=== PATIENT | female | born 1990 | race Caucasian/White ===

== ENCOUNTER 2023-07-11 13:39 | Inpatient (IN) ==
[2023-07-11] MEDS ORDERED: Buffered Lidocaine 1% SYRIN 1 ml INTRADERM ONE (14:34)
[2023-07-11] MEDS ORDERED: Lactated Ringers 1000 ml BAG 1,000 ML IV ONE ×2 (14:34→20:00)
[2023-07-11] MEDS ORDERED: Lidocaine 1% VIAL 10 MG/ML 30 ML VIAL INJ PRN (14:34)
[2023-07-11] MEDS ORDERED: Penicillin G Potassium IV 5,000,000 UNITS in NS 0.9% 100 ml BAG 100 ML IVPB ONE (14:46)
[2023-07-11] MEDS ORDERED: Lidocaine 2% JELLY 6 ML Topical TOPICAL ONE (14:48)
[2023-07-11] MEDS ORDERED: Calcium Carb (TUMS) 500 mg CHEW TAB PO PRN (14:48)
[2023-07-11] MEDS ORDERED: miSOPROStol 100 mcg TAB PO ONE (14:48)
[2023-07-11] MEDS ORDERED: Ondansetron 4 mg VIAL 2 MG/ML 2 ml VIAL IV PRN (14:48)
[2023-07-11] MEDS ORDERED: Lactated Ringers 1000 ml BAG 1,000 ML IV SCH ×2 (15:00→20:00)
[2023-07-11 15:45] LABS: ABS Basophils 0.1 10^3/uL (0.0-0.1); ABS Lymphocytes 0.6 10^3/uL (1.0-4.8); ABS Monocytes 0.5 10^3/uL (0.0-0.9); ABS Neutrophils 12.2 10^3/uL (1.5-7.6); ABS Nucleated RBC 0.01 10^3/ul; Hematocrit 38.5 % (35-45); Lymphocyte % 4.4 %; Mean Corpuscular Hemoglobin 30.2 pg (27-33); Mean Corpuscular Hgb Conc 33.8 g/dL (31-36); Mean Corpuscular Volume 89.5 fL (80-97); Mean Platelet Volume 9.5 fL (7.5-11.2); Nucleated Red Blood Cells % 0.1 %/100WBC (0.0-0.8); Platelet Count 185 10^3/uL (150-450); Red Cell Distribution Width 12.6 % (12-17); White Blood Count 13.3 10^3/uL (3.8-11.8)
[2023-07-11 15:49] LABS: Urine Benzodiazepine Screen None Detected (None Detect); Urine Cannabinoids Screen None Detected (None Detect); Urine Opiates Screen None Detected (None Detect)
[2023-07-11] MEDS ORDERED: OBEPIDURAL (200 ML) 200 ML EPIDURAL ONE (19:09)
[2023-07-11] MEDS ORDERED: Lidocaine 1.5% EPI 1:200,000 30 ML SDV ONE (19:10)
[2023-07-11] MEDS ORDERED: fentaNYL 100 mcg/2 ml 50 MCG/ML VIAL ONE (19:22)
[2023-07-11] MEDS ORDERED: Phenylephrine 40 mcg/mL 10mL (400mcg) SYRINGE IV PUSH PRN ×2 (20:00)
[2023-07-11] MEDS ORDERED: OBEPIDURAL (200 ML) 200 ML EPIDURAL SCH (20:00)
[2023-07-11] MEDS ORDERED: Sodium Citrate/Citric Acid LIQ 15 ML UDC PO PRN (20:00)
[2023-07-11] MEDS: Penicillin G Potassium IV 3,000,000 UNITS in NS 0.9% 100 ml BAG 100 ML IVPB SCH (20:16)
[2023-07-11] MEDS ORDERED: Oxytocin in LR 20,000 MILLI.UNIT/1,000 ML BAG IV SCH (20:35)
[2023-07-11 20:51] LABS: Urine Appearance Clear; Urine Bilirubin Negative (Negative); Urine Blood Negative (Negative); Urine Color Yellow; Urine Glucose Negative (Negative); Urine Ketones Negative (Negative); Urine Nitrite Negative (Negative); Urine Protein Negative (Negative); Urine Specific Gravity 1.013 (1.002-1.030); Urine Urobilinogen Negative (Negative)
[2023-07-12] MEDS: Penicillin G Potassium IV 3,000,000 UNITS in NS 0.9% 100 ml BAG 100 ML IVPB SCH (00:09)
[2023-07-12] MEDS ORDERED: Glycerin ADULT 2.4 gm SUPP PR PRN (00:24)
[2023-07-12] MEDS ORDERED: Witch Hazel PAD JAR TOPICAL PRN (00:24)
[2023-07-12] MEDS ORDERED: Lactated Ringers 1000 ml BAG 1,000 ML IV SCH (01:00)
[2023-07-12] MEDS: Dibucaine 1% OINT 28.35 GM TUBE PR PRN (01:07)
[2023-07-13 07:02] LABS: ABS Eosinophils 0.1 10^3/uL (0.0-0.5); ABS Lymphocytes 1.6 10^3/uL (1.0-4.8); ABS Monocytes 0.7 10^3/uL (0.0-0.9); ABS Neutrophils 5.8 10^3/uL (1.5-7.6); Eosinophil % 1.8 %; Hematocrit 32.4 % (35-45); Mean Corpuscular Hemoglobin 30.9 pg (27-33); Mean Corpuscular Volume 90.7 fL (80-97); Mean Platelet Volume 9.5 fL (7.5-11.2); Platelet Count 161 10^3/uL (150-450); Red Blood Count 3.57 10^6/uL (3.63-4.92); Red Cell Distribution Width 13.4 % (12-17); White Blood Count 8.2 10^3/uL (3.8-11.8)
[2023-07-13 20:48] VITALS: BP 112/78
[2023-07-14] MEDS: Dibucaine 1% OINT 28.35 GM TUBE PR PRN (09:31)
== END 2023-07-14 12:20 | disposition home or self-care (01) | DRG 560 ==
LOC: MCHOBOUT 13:39 → MCHOB 14:54
PROVIDERS: ADMIT Advanced Practice Midwife; ATTEND Advanced Practice Midwife